=== PATIENT | male | born 1960 | race Caucasian/White ===

== ENCOUNTER → 2022-08-17 | Outpatient (CLI) | payer MEDICAID ==
--- NOTE | 2022-08-17 14:38 | P.SLEEP ---
History of Present Illness DATE: 08/17/2022 CONSULTATION/NEW PATIENT EVALUATION HISTORY OF PRESENT ILLNESS/SLEEP-WAKE EVALUATION: 62-year-old gentleman had been evaluated in the sleep center for possible obstructive sleep apnea hypopnea syndrome. SLEEP SCHEDULE: Usually sleep schedule from 10 PM to 7 AM 7 days a week. FALLING ASLEEP: Patient has problems with falling asleep, highest TV set and bedroom. DURING SLEEP: Patient sleeps on the back and side position with snoring and witnessed episodes of stop breathing during the sleep. Patient wakes up from sleep 2 times with nocturia. No history of hypnogogical hallucinations, sleep paralysis, or cataplexy. DURING THE DAY/WAKE STATE: Patient feels sleepiness during the day. [place] sleepiness scale is 5. Patient occasionally take naps around 23 PM. No vivid dreams during naps. Patient feels refreshed after nap. Patient takes 2 caffeinated beverages during the day. PAST MEDICAL HISTORY: Hypertension, diabetes mellitus, Graves' disease, depression, anxiety. PAST SURGICAL HISTORY: Radioactive iodine treatment for Graves' disease. MEDICATIONS: Synthroid 150 g once a day, atorvastatin 10 mg once a day, metformin 500 mg, losartan/hydrochlorothiazide 100/25 mg once a day, amlodipine 10 mg once a day, spironolactone 25 mg once a day, metoprolol 100 mg once a day. SOCIAL HISTORY: Negative for smoking, alcohol consumption occasional. FAMILY HISTORY:Cancer, narcolepsy, restless legs. REVIEW OF SYSTEMS:Snoring, multiple awakenings from sleep, sleepiness during the day. No fevers. No double vision. No recent chest pain. No shortness of breath. No abdominal pain. No bleeding episodes. No blood in urine. No seizure episodes. PHYSICAL EXAMINATION: GENERAL: A pleasant patient without any distress. VITAL SIGNS: BP 156/76 , HR 67 , RR 20 , weight 290.2 pounds, height 5 foot 7 inches, body mass index 45.4 . HEENT: PERRLA, EOMI. Evaluation of oropharynx showed tongue protrudes midline, low position of soft palate Mallampati 4]. NECK: Supple. No JVD. Thyroid is not palpable. 18 inches in circumference. LUNGS: Clear to percussion and to auscultation. Good air exchange. No wheezing or rhonchi. HEART: S1, S2 regular. No murmurs, gallops or rubs. ABDOMEN: Soft and nontender. Bowel sounds are present. No organomegaly appreciated. Obese EXTREMITIES: No clubbing or cyanosis. GROUP SUPERVISOR YARD: Awake, alert, and oriented x3. Cranial nerves 2 to 7 intact. There is no fasciculation or atrophy noted. No focal deficits observed. ASSESSMENT: 1. Snoring, witnessed episodes of stop breathing during the sleep, extremely low position of soft palate Mallampati 4, wide neck 18 inches in circumference. Obstructive sleep apnea hypopnea syndrome. 2. Obesity, body mass index 45.4. 3. Hypertension. 4. History of Graves' disease, status post radioactive treatment with iodine. Hypothyroidism on thyroid supplement. 5 diabetes mellitus type 2. 6 . History of depression. 7. History of anxiety. PLAN: 1. Polysomnography for evaluation of patient's breathing during sleep. 2. CPAP/BiPAP titration if sleep study confirms obstructive sleep apnea- hypopnea syndrome. 3. Preferable position during sleep on the side. 4. No driving if patient feels any sleepiness. Patient is aware of civil and criminal liability for unsafe driving. 5. Sleep hygiene with regular sleep time for at least 7.5-8 hours. 6. Watching and losing weight. Thank you very much for referring this patient for consultation. Sincerely, Fredrick Orourke MD, PhD, FAASM. Diplomat of [place] [employer], Sleep Medicine Board by [place] [employer] [place] [employer] [facility] Note - Sleep Note Sleep Note: Temperature: Pulse Rate: Respiratory Rate: Blood Pressure: SpO2: Height: Weight: BMI: Neck Circumference:
== END ==
LOC: SLEEP 14:03
PROVIDERS: ATTEND Internal Medicine
DX: G47.33 Obstructive sleep apnea (adult) (pediatric) (principal); Z68.42 Body mass index [BMI] 45.0-49.9, adult; I10 Essential (primary) hypertension; Z98.890 Other specified postprocedural states; E11.9 Type 2 diabetes mellitus without complications; F32.A Depression, unspecified; F41.9 Anxiety disorder, unspecified; Z99.89 Dependence on other enabling machines and devices; E03.9 Hypothyroidism, unspecified; Z79.890 Hormone replacement therapy; E05.01 Thyrotoxicosis with diffuse goiter with thyrotoxic crisis or storm; Z79.84 Long term (current) use of oral hypoglycemic drugs; Z79.899 Other long term (current) drug therapy
CPT/HCPCS: 99202

== ENCOUNTER → 2023-03-08 | Outpatient (CLI) | payer MEDICAID ==
--- NOTE | 2023-03-08 16:05 | XR ---
EXAMINATION TYPE: XR shoulder complete LT, XR humerus LT DATE OF EXAM: 03/08/2023 3:48 PM INDICATION: Patient age:Male; 63 years old; Reason for study: M79.602 PAIN IN LEFT ARM; COMPARISON: None TECHNIQUE: The left shoulder was examined in AP, internally rotated and scapular Y projections. . L eft humerus was examined in AP and lateral projections. FINDINGS: No evidence of acute osseous pathology, joint dislocation, or soft tissue swelling. No aggressive les ion identified. The remaining portions of the visualized chest are unremarkable. IMPRESSION: No acute osseous pathology.
== END | disposition home or self-care (01) ==
LOC: RADXRMAIN 15:32
PROVIDERS: ATTEND Nurse Practitioner Family
DX: M79.602 Pain in left arm (principal)

== ENCOUNTER → 2023-03-21 | Outpatient (CLI) | payer MEDICAID ==
--- NOTE | 2023-03-21 15:20 | US ---
EXAMINATION TYPE: US arterial LE single level DATE OF EXAM: 03/21/2023 3:10 PM CLINICAL INDICATION: Male, 63 years old with history of I73.9: peripheral vascular disease; Patient s tatchris having a wellness check that showed abnormality History of: Smoker: No Hypertension: Takes medication Diabetic: Yes Hyperlipidemia: No TIA/CVA: No Previous Vascular Surgery: No CAD: No LA: No Vascular Ulcers: No Claudication: No Gangrene: No Doppler Waveforms: Right: Multiphasic Left: Multiphasic Right Brachial Pressure: 158 Left Brachial Pressure: 143 Ankle-Brachial Indices: Right: 1.5 Left: 1.5 Toe Brachial Indices: Right: 0.9 Left: 0.9 IMPRESSION: No significant peripheral arterial vascular disease suggested.
== END | disposition home or self-care (01) ==
LOC: RADUSWWP 14:20
PROVIDERS: ATTEND Family Medicine
DX: I73.9 Peripheral vascular disease, unspecified (principal)
CPT/HCPCS: 93922

== ENCOUNTER → 2023-04-25 | Outpatient (CLI) | payer MEDICAID ==
--- NOTE | 2023-04-26 08:48 | XR ---
EXAMINATION TYPE: XR chest 2V DATE OF EXAM: 04/25/2023 COMPARISON: NONE TECHNIQUE: PA and lateral views submitted. HISTORY: Cough FINDINGS: The lungs are clear and there is no pneumothorax, pleural effusion, or focal pneumonia. Heart size normal and no overt failure. Osseous structures intact. Hyperinflation compatible COPD. IMPRESSION: 1. No acute process. Correlate for COPD.
== END | disposition home or self-care (01) ==
LOC: RADXRMAIN 16:51
PROVIDERS: ATTEND Nurse Practitioner Family
DX: J40 Bronchitis, not specified as acute or chronic (principal); R05.9 Cough, unspecified
CPT/HCPCS: 71046

== ENCOUNTER → 2023-06-19 | Outpatient (CLI) | payer MEDICAID | LOC: CPPFTMAIN 12:58 | PROVIDERS: ATTEND Family Medicine | DX: J44.9 Chronic obstructive pulmonary disease, unspecified (principal) | CPT/HCPCS: 94060; 94726; 94729 ==

== ENCOUNTER → 2024-05-29 | Outpatient (CLI) | payer MEDICARE, OTHER ==
[2024-05-29 15:34] VITALS: BP 128/66; PULSE 64; RESP 16; TEMP 98.4
--- NOTE | 2024-05-29 15:57 | P.PROGSL ---
Subjective DATE: 05/29/2024 FOLLOW UP VISIT. 64-year-old gentleman returned to sleep center for follow-up visit. I saw patient in August 2022, recommended polysomnogram, [place] sleep [place]. Patient continued to have snoring, awakenings from sleep. It is less than before, because patient lost weight significantly since previous visit from 290 pounds down to 222 pounds. [place] sleepiness scale is 3. MEDICATIONS: Please see below During physical exam: GENERAL: A pleasant patient without any distress. VITAL SIGNS: Please see below, weight 222 pounds, BMI 36.1. HEENT: PERRLA, EOMI, low position of soft palate Mallampati 3. NECK: Supple. No JVD. LUNGS: Clear to percussion and to auscultation. Good air exchange. No wheezing or rhonchi. HEART: S1, S2 regular. ABDOMEN: Soft and nontender. EXTREMITIES: No clubbing or cyanosis. INVESTIGATOR OPERATOR: Awake, alert, and oriented x3. No focal deficit. Impressions: 1. Snoring, awakenings from sleep, low position of soft palate Mallampati 3. Obstructive sleep apnea hypopnea syndrome 2. Hypertension. 3. Hypothyroidism. Patient has history of Graves' disease, had radioactive treatment with iodine. 4. Diabetes mellitus, improved after losing weight. 5. History of depression. 6. History of anxiety. Plan: 1. Polysomnography for evaluation of patient breathing during the sleep 2. Following plan after reading sleep study. 3. Sleep hygiene with regular time in bed for at least 8 hours. 4. Precautions related to driving. No driving if feel any sleepiness. Patient is aware about civil and criminal liability for unsafe driving, promised to follow recommendations. 5. Watching and losing weight. Thank you very much for allowing me to participate in the management of your patient. Fredrick Orourke MD, PhD, FAASM. Diplomat of [place] [employer], Sleep Medicine Board by [place] [employer] [facility] [place] cc: Gail Garcia DO Objective - Vital Signs Vital Signs: Vital Signs Temp 98.4 F 05/29/24 15:33 Pulse 64 05/29/24 15:33 Resp 16 05/29/24 15:33 BP 128/66 05/29/24 15:33 Pulse Ox 97 05/29/24 15:33 FiO2 Intake & Output 05/28/24 05/29/24 05/29/24 18:59 06:59 18:59 Weight 100.698 kg Home Medications: Home Medications Medication Instructions Recorded Confirmed Type Aspirin EC [Ecotrin Low Dose] 81 mg PO DAILY 05/29/24 05/29/24 History Atorvastatin [Lipitor] 10 mg PO DAILY 05/29/24 05/29/24 History Levothyroxine Sodium [Unithroid] 150 mcg PO DAILY 05/29/24 05/29/24 History Losartan Potassium 100 mg PO DAILY 05/29/24 05/29/24 History amLODIPine BESYLATE/BENAZEPRIL 1 cap PO DAILY 05/29/24 05/29/24 History [Lotrel 2.5-10 MG] metFORMIN HCL 500 mg PO DAILY 05/29/24 05/29/24 History
== END ==
LOC: 3 N SLEEP 15:10
PROVIDERS: ATTEND Internal Medicine
DX: G47.33 Obstructive sleep apnea (adult) (pediatric) (principal); I10 Essential (primary) hypertension; E03.9 Hypothyroidism, unspecified; E11.9 Type 2 diabetes mellitus without complications; Z86.59 Personal history of other mental and behavioral disorders
CPT/HCPCS: 99212